=== PATIENT | male | born 1960 | race African-American/Black ===

== ENCOUNTER 2020-08-24 12:57 | Inpatient (IN) | payer MEDICARE ==
[~2020-08-24] VITALS: Ht 172.7 cm; Wt 118.4 kg
[2020-08-24 15:11] LABS: BASOPHILS % 0.3 % (0.0-2.0); HEMATOCRIT. 42.8 % (42.0-52.0); HEMOGLOBIN. 14.5 g/dL (14.0-18.0); LYMPHOCYTES % 10.9 % (20.0-50.0); MEAN CORPUSCULAR HEMOGLOBIN 30.1 pg (28.0-32.0); MEAN CORPUSCULAR VOLUME 88.6 fL (80.0-94.0); MEAN PLATELET VOLUME 7.3 fl (7.4-10.4); MONOCYTES % 4.7 % (2.0-8.0); NEUTROPHILS % 84.1 % (40.0-76.0); PLATELET 170 x1000/uL (130-400); RED BLOOD CELL COUNT 4.83 mill/uL (4.7-6.1)
[2020-08-24 15:18] LABS: CHLORIDE 101 mEq/L (98-107)
[2020-08-24] MEDS ORDERED: POTASSIUM CHLORIDE 20MEQ/PACKET PO ONE (15:45)
[2020-08-24] MEDS ORDERED: IOHEXOL-350 100 ML BOTTLE ONE (21:33)
[2020-08-24] MEDS ORDERED: DIPHENHYDRAMINE 50MG/ML VIAL IV PRN (22:45)
[2020-08-24] MEDS ORDERED: ZOLPIDEM TARTRATE 5MG TABLET PO PRN (22:45)
[2020-08-24] MEDS ORDERED: ACETAMINOPHEN 325MG TABLET PO PRN (22:45)
[2020-08-24] MEDS ORDERED: POTASSIUM CHLORIDE 20MEQ TABLET SR PO NR (22:45)
[2020-08-24] MEDS ORDERED: CLONIDINE 0.1MG TABLET PO PRN (22:45)
[2020-08-24] MEDS ORDERED: MAGNESIUM/ALUMINUM HYDROXIDE/SIMETHICONE 30ML UDC PO PRN (22:45)
[2020-08-24] MEDS ORDERED: ONDANSETRON HCL 4MG/2ML INJ IV PRN (22:45)
[2020-08-24 23:17] LABS: PHOSPHORUS 2.9 mg/dL (2.5-4.9)
[2020-08-24] MEDS ORDERED: MVI, ADULT NO.1 10 ML, FOLIC ACID 1 MG, THIAMINE HCL 100 MG in SODIUM CHLORIDE 0.9% 1,0... IV SCH ×4 (23:30)
[2020-08-25] MEDS: GUAIFENESIN 200MG/10ML SUGAR FREE UDC PO PRN ×2 (01:55→21:33)
[2020-08-25] MEDS: SODIUM CHLORIDE 0.9% INJ 3ML FLUSH IVF SCH ×3 (06:12→21:34)
[2020-08-25 10:30] VITALS: BP 131/74
[2020-08-25 10:54] VITALS: BP 131/74
[2020-08-25 12:00] VITALS: BP 132/69
[2020-08-25 12:24] LABS: BASOPHILS % 0.1 % (0.0-2.0); EOSINOPHILS % 0.1 % (0.0-5.0); HEMATOCRIT. 44.3 % (42.0-52.0); HEMOGLOBIN. 14.9 g/dL (14.0-18.0); LYMPHOCYTES % 13.6 % (20.0-50.0); MEAN CORPUSCULAR HEMOGLOBIN 30.2 pg (28.0-32.0); MEAN CORPUSCULAR VOLUME 89.7 fL (80.0-94.0); MEAN PLATELET VOLUME 7.4 fl (7.4-10.4); MONOCYTES % 6.4 % (2.0-8.0); NEUTROPHILS % 79.8 % (40.0-76.0); PLATELET 160 x1000/uL (130-400); RED BLOOD CELL COUNT 4.94 mill/uL (4.7-6.1); RED CELL DISTRIBUTION WIDTH 14.1 % (11.6-14.6)
[2020-08-25 12:42] LABS: CHLORIDE 106 mEq/L (98-107)
[2020-08-25 16:00] VITALS: BP_SYST 116; BP_SYST 126; BP_SYST 132; BP_DIAS 57; BP_DIAS 66; BP_DIAS 67
[2020-08-25 20:00] VITALS: BP 148/82
[2020-08-25] MEDS ORDERED: ASPI-1497 MT (21:24)
[2020-08-25] MEDS ORDERED: ATOR20TA65 MT (21:24)
[2020-08-25] MEDS ORDERED: FINA5TAB11 MT (21:24)
[2020-08-25] MEDS ORDERED: CHLO25TA2 PO (21:24)
[2020-08-25] MEDS ORDERED: BENA40TA9 MT (21:24)
[2020-08-25] MEDS ORDERED: TAMS-11 PO (21:24)
[2020-08-25] MEDS: ACETAMINOPHEN 325MG TABLET PO PRN (21:33)
[2020-08-26] VITALS: BP 121/85
[2020-08-26 04:00] VITALS: BP 125/77
[2020-08-26] MEDS: ACETAMINOPHEN 325MG TABLET PO PRN (05:55)
[2020-08-26] MEDS: SODIUM CHLORIDE 0.9% INJ 3ML FLUSH IVF SCH ×3 (05:56→22:00)
[2020-08-26 08:00] VITALS: BP_SYST 139; BP_SYST 142; BP_SYST 154; BP_DIAS 75; BP_DIAS 78; BP_DIAS 85
[2020-08-26] MEDS ORDERED: LEVOFLOXACIN 500MG TABLET PO NR (15:15)
[2020-08-26 16:00] VITALS: BP_SYST 110; BP_SYST 131; BP_DIAS 70
[2020-08-26 20:00] VITALS: BP 116/64
[2020-08-27] VITALS: BP 87/59
[2020-08-27 04:00] VITALS: BP 112/65
[2020-08-27] MEDS: SODIUM CHLORIDE 0.9% INJ 3ML FLUSH IVF SCH (06:00)
[2020-08-27 08:00] VITALS: BP 105/65
[2020-08-27 12:00] VITALS: BP 106/66
[2020-08-27 12:49] VITALS: BP 105/65
== END 2020-08-27 13:35 | disposition home or self-care (01) | DRG 73 ==
LOC: ER 13:45 → EDBEDREQ 15:17 → 6WST 16:27 → EDBEDREQ 16:31 → EDBEDREQTM 16:31 → ENRESERV 08-25 08:27 → CANBEDREQ 08-25 16:45
PROVIDERS: ADMIT Internal Medicine; ATTEND Internal Medicine
DX: G90.8 Other disorders of autonomic nervous system (principal); J18.9 Pneumonia, unspecified organism; F84.0 Autistic disorder; E87.6 Hypokalemia; Z20.828 Contact with and (suspected) exposure to other viral communicable diseases; Z88.5 Allergy status to narcotic agent; Z79.899 Other long term (current) drug therapy
CPT/HCPCS: 36415; 71045; 71275; 80048; 80053; 83735; 83880; 84100; 84484; 85025; 85379; 87426; 93005; 93306; 99285; J3411; J3490; J7030; Q9967